=== PATIENT | male | born 1940 | race Caucasian/White ===

== ENCOUNTER 2016-08-08 15:09 | Outpatient (CLI) | payer OTHER ==
--- NOTE | 2016-08-08 18:29 | Diagnostic Imaging Report ---
[facility] [address] [facility].[address] [id number] Report Submission Date: Aug 08, 2016 3:53:14 PM CDT Patient Study Name: CAMILLA REYNOSO Date: Aug 08, 2016 3:11:28 PM CDT Modality Type: CR Gender: M Description: LOWER EXTREMITY : 36 Institution: [facility] Physician: BOBBI SAN - OP Examination: Plain film knee History: Knee discomfort Findings: 3 views of the knee demonstrates tibial spine and patellar spurring. Mild medial joint space narrowing. Chondrocalcinosis. No joint effusion. Impression: Moderate degenerative changes. No fracture. Electronically signed on Aug 08, 2016 3:53:14 PM CDT by: Davis GUTIERREZ
== END 2016-08-08 15:15 ==
LOC: RAD 15:09
PROVIDERS: ATTEND Family Medicine
DX: M25.562 Pain in left knee (principal)
CPT/HCPCS: 73562

== ENCOUNTER 2018-12-13 12:56 | Outpatient (CLI) | payer OTHER ==
--- NOTE | 2018-12-18 10:26 | OP Clinic Progress Note ---
DATE OF VISIT: 12/13/2018 SUBJECTIVE: Agustin is an 78-year-old male presenting to the clinic today for follow up after a visit earlier this week discussing an infected ingrown toenail on the left great toe lateral border and also painful right great toe medial border ingrown toenail. He has had ingrown toenails in both great toes multiple times and would like permanent procedures on both. He presents today after being on Augmentin for a couple of days now and states that the pain is doing much better. He states that rather than doing the medial side of the right great toe he would like the lateral side done as it is causing more pain now than the medial side and the medial side is hardly an issue. The patient does not admit to any fevers, chills, nausea, vomiting, shortness of breath or chest pain. He is a diabetic male and his most recent A1c is 6.6%. OBJECTIVE: Vitals: Temperature 98.4 degrees Fahrenheit, heart rate 89, respiration rate 18, blood pressure 123/73. O2 saturation is 95% on room air. Vascular: 2+ DP and PT pulses bilaterally. Capillary refill time is less than 3 seconds to the toes bilaterally. There is mild edema noted, left great toe lateral border improved from the other day. Dermatologic: There is mild red irritation still noted at the lateral and proximal lateral border of the left great toe, but it is not warm and there is no drainage at this time. This is much improved since the other day. The right great toe nor anywhere else bilateral feet show any erythema or purulence or malodor or any other skin concerns. Musculoskeletal: Pain on palpation is still noted on the left great toe lateral border as well as the right great toe lateral border. There is no pain medial border at this time or it is mild according to the patient's response. There are no gross abnormalities noted bilaterally. Neurologic: Light touch sensation is intact to the toes bilaterally. ASSESSMENT AND PLAN: 1. Cellulitis left hallux nearly completely resolved. 2. Onychocryptosis left hallux lateral border. 3. Onychocryptosis right hallux lateral border. PROCEDURE #1 AND #2: Partial nail avulsion of the left and right great toenails lateral border of both with chemical matrixectomy was performed today. Risk and benefits were discussed that include, but are not limited to bleeding, infection and possible return of ingrown toenail despite chemical matrixectomy portion. The patient understands the risk and benefits and has agreed both by written and verbal consent to go forward with the above procedures on the left and right great toe. To be clear the patient did change and state that the right great toe lateral border is the one he wants done and not the medial as we discussed the other day. PROCEDURE DETAIL: An alcohol swab was utilized to cleanse the base of the right great toe and an injection consisting of a 1:1 mix with 2% lidocaine plain and 0.5% Marcaine plain totaling 4 cc was injected into the base of the right great toe. Once anesthesia was obtained the toe was exsanguinated and a toe tourniquet was applied. At this time the toe had a Betadine prep performed to clean it x2 and at this time the spatula and aspirator was utilized to avulse the right great toe lateral nail border. At this time the site was rinsed with a copious amount of normal saline, dried and phenol was applied in increments of 45 seconds, 30 seconds, 30 seconds, and a final 30 seconds totaling four applications. The site had triple antibiotic ointment placed around the edges to protect it before phenol was applied. At this time the tourniquet was removed and a prompt hyperemic response was noted to the right great toe. At this time a copious amount of 70% isopropyl alcohol was utilized to cleanse the right great toe area. The site was then rinsed with copious amount of normal saline and dried and dressings were applied consisting of Silvadene, 4x4 gauze, 2-inch Caroline and 1-inch Coban beginning on the toe and ending on the distal forefoot to help hold it on the toe. The patient tolerated the procedure well. An identical procedure was performed on the left great toe lateral border. It was purposeful to do the right great toe first before the left great toe in order to protect against cross-contamination and in order to almost completely use separate instrumentation on both feet. The patient did very well with the procedures and stated that he is very happy with them and hardly felt any pain with the injections and no pain throughout the procedure. Hemostasis was obtained with pressure prior to dressing application on both toes. The patient was given verbal and written instructions regarding postprocedure care. The patient will return to clinic in one week for follow up. He will then be seen in two weeks after that. He was told to do Band-Aid and antibiotic twice daily for the next week. Felix GamezPMarianaM.(Dictated/not signed) /Accutype [id number] /mab MTDD
== END 2018-12-13 13:25 ==
LOC: POD 12:56
PROVIDERS: ATTEND Podiatrist Foot & Ankle Surgery
DX: L60.0 Ingrowing nail (principal)
CPT/HCPCS: 11730; 11750; 99212; G0463; A4554; J2001; J3490

== ENCOUNTER 2018-12-20 09:08 | Outpatient (CLI) | payer OTHER ==
--- NOTE | 2018-12-25 11:37 | OP Clinic Progress Note ---
DATE OF VISIT: 12/20/2018 SUBJECTIVE: Agustin is an 78-year-old male who presented to the clinic today for followup of bilateral great toes, lateral border, partial nail avulsion with chemical matrixectomy that was performed last week on 12/13/2018. The patient admits to continuing to have a little bit of pain on the lateral proximal border of the left great toe, but at the right great toe is feeling almost perfect. He admits a little bit of drainage still present on bandages. He does not admit to any other concerns or issues to bilateral great toes. He does not admit to any fevers, chills, nausea, vomiting, shortness of breath or chest pain. OBJECTIVE: Vitals: Temperature 98.3 degrees Fahrenheit, heart rate 92, respiration rate 18, blood pressure 113/45. O2 saturation is 96% on room air. A repeat blood pressure was taken and it was at 141/68, which was much improved. General: The patient seemed a little bit less enthusiastic as usual but still fairly well himself today. Vascular: 2+ DP and PT pulses, bilaterally. Capillary refill time is less than 3 seconds to the toes bilaterally. There is mild edema noted of the proximal lateral left great toe area. There is no edema noted on the right great toe lateral border. Dermatologic: There is still mild red irritation noted at the lateral proximal border of the left great toe and this is without any signs of purulence or significant erythema or warmth. There is no purulence noted or any other signs of infection of bilateral great toes. The edge of the lateral border of the bilateral great toenails was debrided with curette today to clean out the edges and the patient tolerated this well. This did not reveal any signs or concerns of infection. Musculoskeletal: There is slight pain on palpation more so noted on the left great toe proximal lateral border and not so much on the right great toe lateral border. There are no other gross abnormalities noted bilaterally. Neurologic: Light touch sensation is intact to the toes bilaterally. ASSESSMENT AND PLAN: 1. Status post bilateral great toe lateral border partial nail avulsion with chemical matrixectomy - healing. 2. Cellulitis, resolved. I believe that the left great toe cellulitis has resolved and is just showing signs of irritation from the chemical matrixectomy that was performed. Things look very good and the patient understands that he is healing appropriately for the procedure that he had performed. The patient had finished his antibiotics already yesterday. If there are any concerns the patient is to notify me, if there is any increase in erythema or signs of infection of any kind. The patient is doing very well, however, and was encouraged to continue Epsom salt soaks and we will see him back in two weeks for followup to make sure that these have healed up all the way by then. The patient has no further questions and we will see him in two weeks. León Marie D.P.M. /Accutypca [id number] MATT
== END 2018-12-20 09:40 ==
LOC: POD 09:08
PROVIDERS: ATTEND Podiatrist Foot & Ankle Surgery
DX: Z48.817 Encounter for surgical aftercare following surgery on the skin and subcutaneous tissue (principal)
CPT/HCPCS: 99212; G0463

== ENCOUNTER 2019-01-03 08:53 | Outpatient (CLI) | payer OTHER ==
--- NOTE | 2019-01-10 09:26 | OP Clinic Progress Note ---
DATE OF VISIT: 01/03/2019 SUBJECTIVE: Agustin is an 78-year-old male presenting to the clinic today for follow up of a partial nail avulsion with chemical matrixectomy on the lateral border of both great toes on 12/13/2018. The patient was improving last time we saw him, which was two weeks ago and presents today for a follow up and states that the right great toe proximal lateral border is quite painful. He states that the red irritation has been there for quite awhile. The mild red irritation on the left great toe he says is not painful to him at all. He has been doing antibiotic ointment and a Band-Aid on the toes. He has not been doing any soaking he states. He does not admit to any fevers, chills, nausea, vomiting, shortness of breath or chest pain. He was on an antibiotic previously for an initial possible infection I believe in the left great toe. He has not been on antibiotics for a awhile now. OBJECTIVE: Vitals: Temperature 97.5 degrees Fahrenheit, heart rate 80, respiration rate 18, blood pressure 133/73. O2 saturation is 96% on room air. Vascular: 2+ DP and PT pulses, bilaterally. Capillary refill time is less than 3 seconds to the toes bilaterally. There is very mild edema noted on the lateral border of both great toes. Dermatologic: There is slight mild red irritation still noted on the proximal lateral border of the right great toe and left great toe. There are no signs of purulence or erythema or warmth or any signs of infection at all really on both great toes. There is no malodor noted. Musculoskeletal: There is pain on palpation noted on the proximal lateral border of the right great toe. The left great toe lateral border does not have any pain on palpation. There is no evidence of purulence or really much of any drainage at all. There is no fluctuance at all. Neurologic: Light touch sensation is intact to the toes, bilaterally. ASSESSMENT AND PLAN: 1. Onychocryptosis bilateral great toes (status post partial nail avulsion with chemical matrixectomy on the lateral borders on 12/13/2018). 2. Continued pain right lateral great toenail edge. PROCEDURE #1: Wound debridement with local anesthetic injection was performed. Due to the worsening of the pain on the right great toe proximal lateral border of the nail, the risk and benefits of numbing up the toe and cleaning out the edge to make sure there was nothing left behind was discussed. These include, but are not limited to bleeding and infection and the patient agrees to go forward with this wound debridement at this time. He understands that we may need to remove a portion of the nail if needed. Detail: An alcohol swab was utilized to cleanse the base of the right great toe and 5 cc of a 1:1 mix with 2% lidocaine plain and 0.5% Marcaine plain were injected into the base of the right great toe. Anesthesia was obtained and the toe was cleansed with Betadine prep. At this time a curette was utilized to cleanse the lateral aspect of the right great toe border area. There was perhaps a mild amount of stored up fluid in that area. Nothing extravagant was revealed. The lateral edge of the toenail did seem to be curved and possibly be blocking some of the drainage in the proximal aspect of it. A little bit more of the right great toenail edge was trimmed/avulsed with a nail splitter and checked to be free of any nail in that edge at this time. This was found to be true. The site was rinsed with a copious amount of 70% isopropyl alcohol to make sure that it was cleaned very well and then it was rinsed with a copious amount of normal saline. The site was then dried and dressings were applied consisting of triple antibiotic ointment, 4x4 gauze, 2-inch Caroline and 1-inch Coban beginning on the great toe and ending on the distal forefoot to help hold it on the toe. The patient understands to leave this on today and he can remove it tomorrow and continue daily dressing changes with antibiotic ointment and a Band-Aid on both great toes for another week. We will see him in one week from now and at that time will hopefully switch to just a plain Band-Aid for another week. He is diabetic, so he may just be slower to heal, but he did seem worse today with pain than he had been previously, so I wanted to open it up and clean out anything that was on that right great toe. The left great toe was not hurting and so we left it alone. We will have the patient return to clinic in one week. Felix GamezP.M. /Accutype [id number] R: 01/09/19 /mab MTDD
== END 2019-01-03 09:20 ==
LOC: POD 08:53
PROVIDERS: ATTEND Podiatrist Foot & Ankle Surgery
DX: Z48.817 Encounter for surgical aftercare following surgery on the skin and subcutaneous tissue (principal); L60.0 Ingrowing nail; M79.674 Pain in right toe(s)
CPT/HCPCS: 11042; 99213; G0463; A4554

== ENCOUNTER 2019-01-10 08:41 | Outpatient (CLI) | payer OTHER ==
--- NOTE | 2019-01-12 22:21 | OP Clinic Progress Note ---
DATE OF VISIT: 01/10/2019 SUBJECTIVE: Agustin is an 78-year-old male who presented to the clinic today for a postprocedure followup of bilateral great toes lateral border partial nail avulsion with chemical matrixectomy. The patient last week was seen as the right great toe lateral border was still having lots of pain and the toe was numbed and a wound debridement of that area was performed with additional nail removed on that lateral edge. This is doing great and the patient states that he is having virtually no pain at all now on either foot. The patient is doing antibiotic ointment and a Band-Aid. He does not admit to any other issues with the feet and is very happy with the improvement. He does not admit to any fevers, chills, nausea, vomiting, shortness of breath or chest pain. OBJECTIVE: Vitals: Temperature 98.3 degrees Fahrenheit, heart rate 89, respiration rate 16, blood pressure 108/67. O2 saturation is 97% on room air. Vascular: Palpable DP and PT pulses, bilaterally. Capillary refill time is less than 3 seconds to the toes bilaterally. There is almost no edema noted at all bilaterally, perhaps very mild in the proximal lateral edge of the bilateral great toes. Dermatologic: There is very slight pink discoloration at the proximal lateral edge of the right great and left great toes. This is normal for healing. There is no erythema and no significant swelling at all, very small and this looks much better than last week. Both sides are healing beautifully and there is light crusted drainage present in the proximal lateral edges. There is no signs or infection or purulence or malodor noted bilaterally. Musculoskeletal: There is no pain on palpation noted on the bilateral great toes at this time. There were no other gross abnormalities noted bilaterally. Neurologic: Light touch sensation is intact to the toes bilaterally. ASSESSMENT AND PLAN: 1. Post procedure care of bilateral great toes lateral border partial nail avulsion with chemical matrixectomy. These have improved greatly and are healing well. The patient was encouraged to use antibiotic ointment and Band-Aid for the next three days and then just a Band-Aid only for about three days. The patient was encouraged to see me in three weeks and to call and cancel if it has healed and doing great at that time. The patient knows I will be out of town next week around Monday through the following week Monday. The patient is to report to the urgent care or emergency department if there are any concerns at that time. The patient has no other questions or concerns and we will see him in three weeks if needed. He is happy with his care and thanked us for it. León Marie D.P.M./Alex [id number] /mab MTDD
== END 2019-01-10 09:10 ==
LOC: POD 08:41
PROVIDERS: ATTEND Podiatrist Foot & Ankle Surgery
DX: Z48.817 Encounter for surgical aftercare following surgery on the skin and subcutaneous tissue (principal)
CPT/HCPCS: 99212; G0463; A4554